=== PATIENT | female | born 1990 | race African-American/Black ===

== ENCOUNTER 2017-11-28 12:49 | Emergency (ER) | payer OTHER ==
[~2017-11-28] VITALS: Ht 157.5 cm; Wt 63.5 kg
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
[2017-11-28 13:30] VITALS: BP 132/93
--- NOTE | 2017-11-28 13:57 | Diagnostic Imaging Report ---
Indication: Pain Comparison: None Findings: Two views of the left tibia and fibula were obtained. No acute fracture, malalignment, or periosteal reaction are identified. Soft tissues are unremarkable. Impression: No acute injury.
[2017-11-28] MEDS ORDERED: IBUPROFEN600 MG ORAL (13:58)
[2017-11-28 16:06] VITALS: BP 132/93
== END 2017-11-28 14:05 | disposition home or self-care (01) ==
LOC: EDBD 12:49 → EMR 13:13
DX: S80.12XA Contusion of left lower leg, initial encounter (principal); V09.9XXA Pedestrian injured in unspecified transport accident, initial encounter; Y92.414 Local residential or business street as the place of occurrence of the external cause
CPT/HCPCS: 99283